=== PATIENT | female | born 1940 | race Caucasian/White ===

== ENCOUNTER 2017-01-04 23:40 | Emergency (ER) | payer MEDICARE, OTHER ==
[~2017-01-04] VITALS: Ht 152.4 cm; Wt 76.2 kg
[~2017-01-04 23:40] MED LIST: ALTACE2.5 MG PO; ASPIRIN EC81 MG PO; CILOSTAZOL50 MG PO; CRESTOR10 MG PO; HYDROCHLOROTHIA25 MG PO; IPRAT-ALBUT 0.5-3 ML INH; ISOSORBIDE MONO30 MG PO; KLOR-CON M2020 MEQ PO; MELOXICAM15 MG PO; PLAVIX 75 MG TA75 MG PO; PROVENTIL HFA 61 INH INH; REQUIP2 MG PO; SPIRIVA18 MCG INH
[2017-01-05 01:48] LABS: HEMOGLOBIN 14.3 gm/dl (12.3-15.3); RED BLOOD COUNT 4.52 M/UL (4.00-5.10); WHITE BLOOD COUNT 7.1 K/UL (4.5-11.0)
[2017-01-05 01:49] LABS: BUN/CREATININE RATIO 23 (0-10)
[2017-01-05] MEDS ORDERED: MELOXICAM15 MG PO (10:19)
[2017-01-05] MEDS ORDERED: CILOSTAZOL50 MG PO (10:20)
[2017-01-05] MEDS ORDERED: ALTACE2.5 MG PO (10:24)
[2017-01-05] MEDS ORDERED: MULTI FOR HER1 EACH PO (10:24)
[2017-01-05] MEDS ORDERED: VITAMIN D1000 UNI1 PO (10:24)
== END 2017-01-05 18:20 | disposition home or self-care (01) ==
LOC: ER1 23:40 → ZEROF 01-05 01:05 → ER1 01-05 01:05
PROVIDERS: Emergency Medicine
DX: I20.0 Unstable angina (principal); I10 Essential (primary) hypertension; J44.9 Chronic obstructive pulmonary disease, unspecified; J45.909 Unspecified asthma, uncomplicated; F17.210 Nicotine dependence, cigarettes, uncomplicated; Z88.5 Allergy status to narcotic agent; Z79.899 Other long term (current) drug therapy
CPT/HCPCS: 36415; 71010; 78452; 80053; 82550; 82553; 83874; 84484; 85025; 93005; 93017; 99285; A9502; J2785

== ENCOUNTER 2017-01-17 16:44 | Emergency (ER) | payer MEDICARE, OTHER ==
[~2017-01-17 16:44] MED LIST changes: +MULTI FOR HER1 EACH PO; +VITAMIN D1000 UNI1 PO
[2017-01-17 17:59] LABS: HEMOGLOBIN 14.4 gm/dl (12.3-15.3); RED BLOOD COUNT 4.59 M/UL (4.00-5.10); WHITE BLOOD COUNT 5.5 K/UL (4.5-11.0)
[2017-01-17 18:18] LABS: BUN/CREATININE RATIO 27 (0-10)
== END 2017-01-17 20:45 | disposition home or self-care (01) ==
LOC: ER1 16:44
PROVIDERS: Physician Assistant
DX: J44.9 Chronic obstructive pulmonary disease, unspecified (principal); J20.9 Acute bronchitis, unspecified; I25.10 Atherosclerotic heart disease of native coronary artery without angina pectoris; I11.0 Hypertensive heart disease with heart failure; I50.30 Unspecified diastolic (congestive) heart failure; Z90.710 Acquired absence of both cervix and uterus; Z87.891 Personal history of nicotine dependence; Z88.5 Allergy status to narcotic agent
CPT/HCPCS: 36415; 36600; 71010; 80053; 81001; 82550; 82553; 82803; 83605; 83874; 83880; 84484; 85025; 87040; 87081; 87086; 87880; 93005; 94640; 94664; 96374; 99285; J1100

== ENCOUNTER → 2020-11-18 | Outpatient (CLI) | payer MEDICARE, OTHER ==
[~2020-11-18] MED LIST changes: +ASPIRIN CHEWABL81 MG PO; +ATIVAN0.5 MG PO; +AUGMENTIN 875-1 EACH PO; +CLEOCIN HCL300 MG PO; +NAPROSYN500 MG PO; +NORCO 5-325 TA1 EACH PO; +REQUIP3 MG PO; +VITAMIN D35000 UNI1 PO
== END ==
LOC: NM 08:10
DX: C34.12 Malignant neoplasm of upper lobe, left bronchus or lung (principal); R94.8 Abnormal results of function studies of other organs and systems
CPT/HCPCS: 78306; A9503

== ENCOUNTER → 2020-11-21 | Outpatient (CLI) | payer MEDICARE, OTHER ==
[2020-11-21 11:10] LABS: HEMOGLOBIN 14.1 gm/dl (12.3-15.3); RED BLOOD COUNT 4.29 M/UL (4.00-5.10); WHITE BLOOD COUNT 4.4 K/UL (4.5-11.0)
[2020-11-21 11:27] LABS: BUN/CREATININE RATIO 13 (0-10)
== END ==
LOC: CT 10:50
PROVIDERS: Internal Medicine Hematology & Oncology
DX: K80.20 Calculus of gallbladder without cholecystitis without obstruction (principal); C34.12 Malignant neoplasm of upper lobe, left bronchus or lung
CPT/HCPCS: 36415; 71260; 80053; 85025; Q9963

== ENCOUNTER 2021-01-27 12:27 | Observation (INO) | payer MEDICARE, OTHER ==
[~2021-01-27] VITALS: Ht 154.9 cm; Wt 71.3 kg
[~2021-01-27 12:27] MED LIST changes: -CLEOCIN HCL300 MG PO; -HYDROCHLOROTHIA25 MG PO
[2021-01-27 14:07] LABS: HEMOGLOBIN 12.8 gm/dl (12.3-15.3); RED BLOOD COUNT 3.91 M/UL (4.00-5.10); WHITE BLOOD COUNT 6.2 K/UL (4.5-11.0)
[2021-01-27 14:29] LABS: BUN/CREATININE RATIO 28 (0-10)
[2021-01-27] MEDS ORDERED: HYDROCHLOROTHIA25 MG PO (22:42)
[2021-01-28 03:00] LABS: HEMOGLOBIN 12.3 gm/dl (12.3-15.3); RED BLOOD COUNT 3.79 M/UL (4.00-5.10); WHITE BLOOD COUNT 5.1 K/UL (4.5-11.0)
[2021-01-28 03:36] LABS: BUN/CREATININE RATIO 25 (0-10)
[2021-01-29 03:53] LABS: BUN/CREATININE RATIO 26 (0-10)
--- NOTE | 2021-01-29 10:50 | NUR ---
PATIENT 88% ON ROOM AIR.
[2021-01-29] MEDS ORDERED: CLEOCIN HCL300 MG PO (18:31)
== END 2021-01-29 14:30 | disposition home or self-care (01) ==
LOC: ER1 12:27 → CDU 15:09 → PROG CARE 15:09
PROVIDERS: Internal Medicine; Physician Assistant; ADMIT Internal Medicine Infectious Disease
DX: I44.2 Atrioventricular block, complete (principal); R00.1 Bradycardia, unspecified; E87.6 Hypokalemia; M79.89 Other specified soft tissue disorders; D69.6 Thrombocytopenia, unspecified; I34.8 Other nonrheumatic mitral valve disorders; I35.0 Nonrheumatic aortic (valve) stenosis; I10 Essential (primary) hypertension; E78.5 Hyperlipidemia, unspecified; G25.81 Restless legs syndrome; R01.1 Cardiac murmur, unspecified; D50.9 Iron deficiency anemia, unspecified; D75.89 Other specified diseases of blood and blood-forming organs; Z87.891 Personal history of nicotine dependence; Z85.118 Personal history of other malignant neoplasm of bronchus and lung; Z98.890 Other specified postprocedural states; Z88.5 Allergy status to narcotic agent; Z88.1 Allergy status to other antibiotic agents; Z88.8 Allergy status to other drugs, medicaments and biological substances; Z79.82 Long term (current) use of aspirin; Z79.899 Other long term (current) drug therapy; Z20.822 Contact with and (suspected) exposure to COVID-19
CPT/HCPCS: ECHO; 33208; 36415; 71045; 73030; 73060; 73502; 80048; 80053; 82550; 82553; 83874; 84439; 84443; 84484; 85025; 93005; 93306; 93308; 93971; 94760; 96372; 99152; 99153; 99285; C1898; C2621; G0378; J1644; J1650; J2250; J3010; J3370; J7050; U0002

== ENCOUNTER → 2021-05-26 | Outpatient (CLI) | payer MEDICARE, OTHER ==
[~2021-05-26] MED LIST changes: +CLEOCIN HCL300 MG PO; +HYDROCHLOROTHIA25 MG PO
[2021-05-26 14:05] LABS: HEMOGLOBIN 15.4 gm/dl (12.3-15.3); RED BLOOD COUNT 4.8 M/UL (4.00-5.10); WHITE BLOOD COUNT 3.3 K/UL (4.5-11.0)
[2021-05-26 14:27] LABS: BUN/CREATININE RATIO 26 (0-10)
== END ==
LOC: CT 13:00
PROVIDERS: Internal Medicine Hematology & Oncology
DX: C34.12 Malignant neoplasm of upper lobe, left bronchus or lung (principal)
CPT/HCPCS: 36415; 71260; 80053; 85027; Q9967

== ENCOUNTER → 2022-06-09 | Outpatient (CLI) | payer MEDICARE ==
[2022-06-09 13:56] LABS: HEMOGLOBIN 14.4 gm/dl (12.3-15.3); RED BLOOD COUNT 4.45 M/UL (4.00-5.10); WHITE BLOOD COUNT 4.7 K/UL (4.5-11.0)
[2022-06-09 14:30] LABS: BUN/CREATININE RATIO 26 (0-10)
== END ==
LOC: CT 12:55
PROVIDERS: Internal Medicine Hematology & Oncology
DX: C34.12 Malignant neoplasm of upper lobe, left bronchus or lung (principal); R91.1 Solitary pulmonary nodule
CPT/HCPCS: 36415; 71260; 80053; 85025; Q9967